=== PATIENT | male | born 1970 | race Two or more races ===

== ENCOUNTER → 2017-08-29 | Outpatient (CLI) | payer OTHER ==
[~2017-08-29] MED LIST: NABUMETONE500 MG PO; PERCOCET 5/3251 TAB PO
== END | disposition home or self-care (01) ==
LOC: RAD 501 11:37
DX: M20.41 Other hammer toe(s) (acquired), right foot (principal); M20.42 Other hammer toe(s) (acquired), left foot

== ENCOUNTER 2018-01-03 10:35 | Outpatient (CLI) | payer OTHER | END 2018-01-03 10:49 | disposition home or self-care (01) | LOC: RAD 501 10:35 | DX: I73.9 Peripheral vascular disease, unspecified (principal) ==

== ENCOUNTER 2018-02-05 09:50 | Outpatient (CLI) | payer OTHER | END 2018-02-05 09:58 | disposition home or self-care (01) | LOC: RAD 501 09:50 | DX: M20.41 Other hammer toe(s) (acquired), right foot (principal); M20.42 Other hammer toe(s) (acquired), left foot ==